=== PATIENT | male | born 1945 | race Caucasian/White ===

== ENCOUNTER 2019-03-20 18:51 | Inpatient (IN) | payer OTHER ==
[~2019-03-20] VITALS: Ht 175.3 cm; Wt 118.0 kg
[~2019-03-20 18:51] MED LIST: ACTOPLUS MET X1 EAC1 OR; ACTOS15 MG PO; ADULT LOW DOSE81 MG; ADULT LOW DOSE81 MG PO; ADVAIR 250-501 EACH; ADVAIR 250-501 EACH IH; APAP500 PO; ASPIRIN325 PO; BENADRYL25 MG PO; BENAZEPRIL HCL20 MG PO; BENICAR20 MG OR; BISACODYL SUPP10 MG RE; CALCIUM CARBO1250 MG PO; CALCIUM CARBONATE; CATAPRES-TTS 20.2 MG TD; COUMADIN7.5 MG PO; COZAAR 50 MG TA50 M2 PO; DUONEB 2.5-0.5 M3 ML; GLUCOPHAGE500 MG PO; HYDRALAZINE 2525 M1 PO; LEVOTHROID; LEVOTHROID PO; LOVENOX SC; MAALOX525 MG/15 PO; MULTIVITAMINS PO; NEPHROCAPS SOFT1 CAP PO; NOVOLIN N100 UNIT/1 SQ; NOVOLIN R100 UNIT/1 IJ; ONDANSETRON ODT4 MG PO; PACERONE 200 M200 M1 PO; PEPCID20 MG PO; PRAVASTATIN SOD20 MG OR; PRAVASTATIN SOD20 MG PO; PROCRIT 1010000 U/M1 SC; PROTONIX40 M2 PO; RENAGEL PO; SPIRIVA; SPIRIVA INH; TOPROL XL50 MG PO; VENTOLIN17 GM INH; ZOLOFT PO; ZOLOFT100 MG OR; ZOLOFT50 MG PO
[2019-03-20 18:52] VITALS: BP 168/71
[2019-03-20 19:31] LABS: ABSOLUTE NEUTROPHILS 11.2 thou/uL (1.4-8.2); BASOPHILS 0.7 % (0.0-2.0); HEMATOCRIT 33.6 % (42.0-52.0); HEMOGLOBIN 11.2 gm/dL (14.0-18.0); LYMPHOCYTES 12.7 % (24.0-44.0); MCH 27.8 pg (26.0-34.0); MCHC 33.4 g/dL (28.0-37.0); PLATELET COUNT 445 thou/uL (150-400); POLYS 79.6 % (36.0-66.0); RBC 4.04 mil/uL (4.50-6.00)
[2019-03-20 19:34] LABS: BE(vivo) -1.3 mmol/L (-2 to +3); HCO3 22.8 mmol/L (22.0-26.0); PCO2 36.4 mmHg (35.0-45.0); PO2 64.3 mmHg (80.0-100.0); pH 7.415 (7.360-7.450)
[2019-03-20 19:38] LABS: ANION GAP 14 mmol/L (7-16); BUN 16 mg/dL (7-18); CALCIUM 8.8 mg/dL (8.5-10.1); CHLORIDE 100 mmol/L (98-107); CO2 22 mmol/L (21-32); GLUCOSE 200 mg/dL (74-106); POTASSIUM 3.2 mmol/L (3.5-5.1); SODIUM 136 mmol/L (136-145)
[2019-03-20 19:47] LABS: TROPONIN-I <0.06 ng/mL (<0.06)
[2019-03-20] MEDS ORDERED: METFORMIN HCL500 MG PO (22:28)
[2019-03-20] MEDS ORDERED: GABAPENTIN 100100 MG PO (22:28)
[2019-03-20] MEDS ORDERED: NOVOLIN 70100 UNIT/5 SUBQ (22:32)
[2019-03-21 04:32] LABS: HEMATOCRIT 33.1 % (42.0-52.0); MCH 27.5 pg (26.0-34.0); MCHC 33.1 g/dL (28.0-37.0); RBC 3.99 mil/uL (4.50-6.00); RDW 13.4 % (10.5-14.5); WBC 13.8 thou/uL (4.0-11.0)
[2019-03-21 04:35] LABS: CALCIUM 8.6 mg/dL (8.5-10.1); CREATININE 0.9 mg/dL (0.7-1.3); MAGNESIUM 1.3 mg/dL (1.8-2.4); POTASSIUM 3.5 mmol/L (3.5-5.1)
--- NOTE | 2019-03-21 07:40 | EKG ---
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 : 1945 Requested By: Danny Medina Order Number: [id number] MD: Arron Durham Measurements Intervals [place] Rate: 97 P: 60 RI: 160 QRS: 58 QRSD: 163 T: -16 QT: 400 QTc: 508 Interpretive Statements Sinus tachycardia Atrial premature complex Right bundle branch block Compared to ECG 07/19/2016 06:52:16 Right bundle-branch block now present Electronically Signed On 03-21-2019 7:40:43 CDT by Arron Durham [email or web address] ��������������������������������������������� <ELECTRONICALLY SIGNED> ���������������������������������������� By: Arron Durham MD, [facility] ��������������������������������������������� 03/21/19 0740 1920 19 Arron Durham MD, [facility] /EPI
[2019-03-21 14:28] VITALS: BP 130/56
[2019-03-21 16:25] VITALS: BP 130/56
[2019-03-21 16:52] VITALS: BP 122/69
[2019-03-21 17:48] VITALS: BP 152/87
--- NOTE | 2019-03-21 18:30 | NUR ---
PT ARRIVED TO UNIT FROM ED AT APPROX 1800. PT IS ACCOMPANIED BY . VSS, EVEN NON LABORED BREATHING. 02 SAT MAINTAIN >90 ON OPTIFLOW 02 SETTINGS. COMPLETED ADMISSION HISTORY, EDUCATION, AND ABUSE ASSESS. ALL CONSENTS SIGNED. FALL RISK IN PLACE. TELE INTERFERENCE EXPLAINED. MED RECONCILIATION COMPLETED. PT AND HAVE BEEN UPDATED AND PRIENTED TO ROOM. NO NEW COMPLAINTS AT THIS TIME.
[2019-03-21 20:02] VITALS: BP 112/54
[2019-03-22] VITALS (128 sets, daily range): BP systolic 79–190; BP diastolic 34–136
[2019-03-22 05:21] LABS: HEMATOCRIT 34.2 % (42.0-52.0); HEMOGLOBIN 11.4 gm/dL (14.0-18.0); MCH 27.8 pg (26.0-34.0); MCHC 33.3 g/dL (28.0-37.0); MCV 83.5 fL (80.0-100.0); PLATELET COUNT 454 thou/uL (150-400); RBC 4.09 mil/uL (4.50-6.00); RDW 13.2 % (10.5-14.5); WBC 23.5 thou/uL (4.0-11.0)
[2019-03-22 05:33] LABS: CALCIUM 8.6 mg/dL (8.5-10.1); CREATININE 0.9 mg/dL (0.7-1.3); MAGNESIUM 2.1 mg/dL (1.8-2.4)
[2019-03-22 07:42] LABS: ABSOLUTE NEUTROPHILS 21.2 thou/uL (1.4-8.2)
[2019-03-22 07:46] LABS: ANISOCYTOSIS SLIGHT
--- NOTE | 2019-03-22 08:08 | NUR ---
PATIENT IS SLOWLY PROGRESSING IN CARE PLAN. VITAL SIGNS MOSTLY SABLE WITH PATIENT HAVING NO COMPLAINTS OF PAIN OR NAUSEA. PATIENT REMAINED ON OPTIFLO NASAL CANNULA WITH OXYGEN SATURATION STAYING IN LOW 90'S TO HIGH 80'S. PATIENT DE SATS WITH MINIMAL EXERTION. UP TO BEDSIDE COMMODE WITH ASSISTANCE MULTIPLE TIMES INCIDENT FREE. CONTRINUE PLAN OF CARE.
--- NOTE | 2019-03-22 10:21 | 2DMMODE ---
[facility] [address] [place] [address] 2 D/M-MODE ECHOCARDIOGRAM Name: KAILASH ARREOLA JOSE Room #: 359-P ADM IN ..#: [id number] ������������� Admission: 03/20/19 ������������� Attend Phys: Jony Burgos, Discharge: ��� ������������� ��� Date of : 49 Date of Service: 03/22/19 1021 �� Report #: [id number] �������� ��������������������������������������������[id number] THIS REPORT FOR: //name// APPROVED REPORT Study performed: 03/22/2019 08:23:29 EXAM: Comprehensive 2D, Doppler, and color-flow Echocardiogram Patient Location: In-Patient Room #: 359 Status: routine BSA: 2.26 HR: 101 bpm BP: 120/66 mmHg Rhythm: NSR Other Information Study Quality: Adequate Indications COPD Diabetes Chest Pain Hypertension/HDD 2D Dimensions RVDd: 38.33 mm IVSd: 10.06 (7-11mm) LVOT Diam: 21.84 (18-24mm) LVDd: 51.94 mm PWd: 11.57 (7-11mm) Ascending Ao: 33.13 (22-36mm) LVDs: 37.99 (25-40mm) Aortic Root: 31.62 mm IVC: 19.00 mm Volumes Left Atrial Volume (Systole) Single Plane 4CH: 58.09 mL Single Plane 2CH: 58.87 mL LA ESV Index: 29.00 mL/m2 Aortic Valve AoV Peak Aldo.: 1.34 m/s AO Peak Gr.: 7.13 mmHg LVOT Max P.45 mmHg LVOT Max V: 1.05 m/s ISAC Vmax: 2.96 cm2 Mitral Valve [facility] [address] [place] [address] 2 D/M-MODE ECHOCARDIOGRAM Name: KAILASH ARREOLA Room #: 359-P [facility] [id number] ������������� Admission: 03/20/19 ������������� Attend Phys: Jony Burgos, Discharge: ��� ������������� ��� Date of : 49 Date of Service: 03/22/19 1021 �� Report #: [id number] �������� ��������������������������������������������[id number] E/A Ratio: 0.0 MV E Max Aldo.: 0.80 m/s MV A Aldo.: 0.00 m/s IVRT: 69.20 ms Pulmonary Valve PV Peak Aldo.: 1.21 m/s PV Peak Gr.: 5.83 mmHg Pulmonary Vein P Vein S: 0.45 m/s P Vein A: 0.36 m/s P Vein D: 0.39 m/s P Vein A Dur.: 93.4 msec P Vein S/D Ratio: 1.15 Left Ventricle The left ventricle is normal size. There is normal left ventricular wall thickness. The left ventricular systolic function is normal. The left ventricular ejection fraction is within the normal range. LVEF is 55-60%. Transmitral Doppler flow pattern suggests impaired LV relaxation. Right Ventricle The right ventricle is normal size. The right ventricular systolic function is normal. Atria The left atrium size is normal. The right atrium size is normal. Aortic Valve The aortic valve is normal in structure. No aortic regurgitation is present. There is no aortic valvular stenosis. Mitral Valve The mitral valve is normal in structure. Trace mitral regurgitation. No evidence of mitral valve stenosis. Tricuspid Valve The tricuspid valve is normal in structure. There is no tricuspid valve regurgitation noted. Pulmonic Valve The pulmonary valve is normal in structure. Trace pulmonic regurgitation. Great Vessels The aortic root is normal in size. IVC is normal in size and [facility] [address] [place] [address] 2 D/M-MODE ECHOCARDIOGRAM Name: KAILASH ARREOLA [facility] Room #: 359-P [facility] IN .R.#: [id number] ������������� Admission: 03/20/19 ������������� Attend Phys: Jony Burgos, Discharge: ��� ������������� ��� Date of : 49 Date of Service: 03/22/19 1021 �� Report #: [id number] �������� ��������������������������������������������[id number] collapses >50% with inspiration. Pericardium Trace pericardial effusion. <Conclusion> The left ventricle is normal size. LVEF is 55-60%. The aortic valve is normal in structure. The mitral valve is normal in structure. Trace mitral regurgitation. The tricuspid valve is normal in structure. The pulmonary valve is normal in structure. Trace pulmonic regurgitation. Trace pericardial effusion. ��������������������������������������������� <ELECTRONICALLY SIGNED> ���������������������������������������� By: Rishi Coy MD ��������������������������������������������� 03/22/19 1021 1021 1021 Rishi Coy MD /INF
[2019-03-22 10:49] LABS: BE(vivo) -0.6 mmol/L (-2 to +3); HCO3 23.7 mmol/L (22.0-26.0); PO2 57.6 mmHg (80.0-100.0); pH 7.413 (7.360-7.450); sO2 90.4 % (92.0-98.0)
[2019-03-22 12:55] LABS: BE(vivo) -4.8 mmol/L (-2 to +3); HCO3 21.5 mmol/L (22.0-26.0); PCO2 44.5 mmHg (35.0-45.0); PO2 97.4 mmHg (80.0-100.0); sO2 96.8 % (92.0-98.0)
[2019-03-22 12:56] LABS: pH 7.302 (7.360-7.450)
--- NOTE | 2019-03-22 13:30 | NUR ---
Case opened to follow for dc planning. Unable to visit with pt as he has just been transfered to ICU and intubated due to worsening repiratory status. Pt's Yana is at bedside. They live in their family home in [place]. He has no prior dme at home. Will reattempt to visit with the pt/or his spouse as his condition stabilizes. Available for support as needed.
[2019-03-22 15:30] LABS: BE(vivo) -1.6 mmol/L (-2 to +3); HCO3 23.1 mmol/L (22.0-26.0); PCO2 38.7 mmHg (35.0-45.0); PO2 123.7 mmHg (80.0-100.0); pH 7.393 (7.360-7.450); sO2 98.4 % (92.0-98.0)
--- NOTE | 2019-03-22 19:03 | NUR ---
1220 PT ARRIVED ON UNIT FROM 3W, ORDERS TO INTUBATED, RECIEVED ORDERS, MEDICATIONS PULLED AND DOCUMENTED, SEE CHARTING. 1225 PT INTUBATED, TOLERATED WELL, ORDERS RECIEVED FOR SEDATION, UPDATED ON STATUS AND PLAN OF CARE. SHE AGREES. WILL MONITOR CLOSELY. VITAL SIGNS STABLE AT THIS TIME.
[2019-03-23] VITALS (94 sets, daily range): BP systolic 75–141; BP diastolic 32–68
[2019-03-23 03:23] LABS: CALCIUM 7.3 mg/dL (8.5-10.1); CREATININE 1.2 mg/dL (0.7-1.3); POTASSIUM 3.9 mmol/L (3.5-5.1)
[2019-03-23 03:48] LABS: HEMATOCRIT 29.8 % (42.0-52.0); HEMOGLOBIN 9.7 gm/dL (14.0-18.0); MCH 27.3 pg (26.0-34.0); MCHC 32.7 g/dL (28.0-37.0); MCV 83.4 fL (80.0-100.0); RBC 3.57 mil/uL (4.50-6.00); RDW 13.2 % (10.5-14.5); WBC 16.2 thou/uL (4.0-11.0)
[2019-03-23 05:17] LABS: BE(vivo) -5.2 mmol/L (-2 to +3); HCO3 21.4 mmol/L (22.0-26.0); PCO2 45.7 mmHg (35.0-45.0); PO2 130.4 mmHg (80.0-100.0); pH 7.288 (7.360-7.450); sO2 98.3 % (92.0-98.0)
--- NOTE | 2019-03-23 06:47 | NUR ---
ASSUMED CARE OF PT AT 1900. PT SEDATED ON PROPOFOL AND VERSED. PT WAKES UP VERY RESTLESS WHEN SEDATION LIGHTENED. HE IS ASYNCHRONOUS WITH THE VENT AND ATTEMPTS TO REACH FOR ETT ON SEDATION VACATION. SEDATION LIGHTENED DUE TO LOW BP AT 1900. AT APPROXIMATELY 0200 PT BEGAN BECOMING HYPOTENSIVE DESPITE SEDATION LIGHTENED. Danis ARAIZA CALLED AND ORDERS FOR 25O CC BOLUS GIVEN WITH SLIGHT IMPROVEMETN IN BP. DR MCCARTHY CALLED AT 0412 REGARDING LOW BP DESPITE FLUID. ORDERS FOR INCREASE RATE IN IVF, 1L NS BOLUS, AND LEVOPHED GIVEN. PT STARTED ON LOW DOSE LEVOPHED WITH IMPROVEMENT IN BP.
--- NOTE | 2019-03-23 08:52 | HC ---
[facility] [place] [address] CONSULTATION Name: KAILASH ARREOLA Room #: 244-P ADM IN M.R.#: [id number] Admission: 03/20/19 ������������������ Attend Phys: Jony Burgos DO Discharge: ������������������ Date of : 49 Report #: [id number] THIS REPORT FOR: //name// CC: Jony Burgos Physician staff [facility] DATE OF SERVICE: 03/21/2019 REASON FOR CONSULTATION: Pneumonia. HISTORY OF PRESENT ILLNESS: A 73-year-old white man who is admitted through the Emergency Room with increasing shortness of breath and found to have a rather abnormal CT scan of the chest with bilateral pulmonary infiltrates. The patient relates some dry cough, unable to expectorate. No significant fevers. PAST MEDICAL HISTORY: 1. Atrial fibrillation. 2. Hypertension. 3. Hyperthyroidism. 4. Diabetes mellitus. 5. Dyslipidemia. 6. Status post appendectomy in 1963. 7. Gastroesophageal reflux. 8. Kidney stones in 1974. 9. Obstructive sleep apnea. DRUG ALLERGIES: None listed. MEDICATIONS: The patient is currently on treatment with enoxaparin, sertraline, losartan, aspirin, atorvastatin, levothyroxine, chlorhexidine gluconate, guaifenesin, gabapentin, famotidine, methylprednisolone, midazolam p.r.n., Atrovent and albuterol inhalation treatments, p.r.n. glucose glucagon, azithromycin 500 mg IV daily, Rocephin 1 gram IV daily. SOCIAL HISTORY: See H and P, old records. FAMILY HISTORY: See H and P, old records. REVIEW OF SYSTEMS: See H and P and as above. PHYSICAL EXAMINATION: GENERAL: Chronically ill-appearing white man, overweight, . VITAL SIGNS: Temperature 98, pulse 91, respirations 23, BP 130/56, height 5 feet 9 inches, weight 246 pounds. HEENMT: Missing teeth. No thrush or hairy leukoplakia. [facility] [address] [place] [address] CONSULTATION Name: KAILASH ARREOLA [facility] Room #: [facility].#: [id number] Admission: 03/20/19 ������������������ Attend Phys: Jony Burgos DO Discharge: ������������������ Date of : 49 Report #: [id number] NECK: Supple, no thyromegaly. LUNGS: Crackles, rhonchi in both lung ramos. HEART: S1, S2. No gallop or murmur. ABDOMEN: Obese, soft. No masses or megaly. GENITALIA AND RECTAL: Deferred. EXTREMITIES: No clubbing or cyanosis. NEUROLOGIC: Grossly within normal limits. LABORATORY DATA: Sodium 138, potassium 3.5, BUN 12, creatinine 0.9, glucose 237, magnesium 1.3. C-reactive protein 224.5 mg/dL. D-dimer 2.16. WBC on 03/20/2019 is 14,000, yesterday was 13,800 and today, it jumped up to 23,500; hemoglobin 11.4 g/dL; platelets 454,000. White blood cell count differential revealed 90% segmented neutrophils. ESR 112 mm per hour. Procalcitonin 0.16, normal. ABGs reveal pH 7.30, pCO2 44, pO2 97, bicarbonate 21.52. Lactate 2.17. This is on FiO2 of 100%. MICROBIOLOGY DATA: Pending at the time of this dictation. RADIOLOGY EVALUATION: A CT scan of the chest PE protocol revealed no pulmonary embolism, extensive bilateral diffuse pulmonary infiltrate compatible with pneumonia. Renal calculi, lobulated liver with possible chronic liver disease. ASSESSMENT: 1. Acute respiratory failure requiring orotracheal intubation and mechanical ventilation. 2. Possible chronic obstructive pulmonary disease with obstructive sleep apnea. 3. Extensive bilateral pulmonary infiltrate/pneumonia. 4. Kidney stones. 5. Dyslipidemia. 6. Possible liver cirrhosis. SUGGESTIONS: Recommend broadening antibiotic coverage. Discontinue Rocephin and start meropenem 1 gram IV every 8 hours and today, I am adding Zyvox. The patient is being transferred to the ICU. Dr. Tolentino, thank you for requesting my suggestions in the care of your patient. ��������������������������������������������� <ELECTRONICALLY SIGNED> ���������������������������������������� By: Hebert Moreno MD ��������������������������������������������� 03/23/19 0852 1429 2237 Hebert Moreno MD /nt
--- NOTE | 2019-03-23 11:12 | NUR ---
THE PATIENT WAS TRANSFERRED TO ICU DUE TO DECLINING RESPIRATORY STATUS AND NOW ON A VENTILATOR UNDER SEDATION. WILL AWAIT NEW ORDERS WHEN PATIENT IS READY FOR ORAL INTAKE.
--- NOTE | 2019-03-23 11:45 | NUR ---
Dr Tolentino performed bedside bronkoscopy with assistace of RT. Pt already on sedation prior to start of the procedure (Versed gtt and Proofol). Specimens were sent to the lab. See procedure record on the chart.
--- NOTE | 2019-03-23 15:00 | NUR ---
Pt fingerstick glucose at 1305 was 500. Test was repeated and serum glucose was also obtained. Dr Pryor was notified and orders were received for insulin gtt per protocol. Subcutaneous insulin was dc'd.
--- NOTE | 2019-03-23 18:15 | NUR ---
Pt was taken to radiology for CT scan of chest per orders from Dr Tolentino. Pt remains sedated. Pt was given Morphine 4 mg IV at 1741 for increased use of accessory muscles with breathing. Sedation vacation not given this shift due to pulmonary status. and dtr were here for visit today.
--- NOTE | 2019-03-23 18:28 | NUR ---
VASCULAR ACCESS NURSE ROUNDING. THE CENTRAL LINE CONTINUES TO BE APPROPRIATE FOR THIS PATIENT. HE CONTINUES ON SEVERAL IV MEDS IN THE ICU
[2019-03-23 18:53] LABS: CALCIUM 7.8 mg/dL (8.5-10.1); CREATININE 1.1 mg/dL (0.7-1.3); POTASSIUM 3.4 mmol/L (3.5-5.1)
--- NOTE | 2019-03-23 19:30 | NUR ---
Report was given to RN assuming care. (Wilfrid).
--- NOTE | 2019-03-23 19:44 | HC ---
[facility] [place] [address] CONSULTATION Name: KAILASH ARREOLA JR Room #: 244-P ADM IN M.R.#: [id number] Admission: 03/20/19 ������������������ Attend Phys: Jony Burgos DO Discharge: ������������������ Date of : 49 Report #: [id number] THIS REPORT FOR: //name// CC: Jony Burgos Physician staff [facility] DATE OF SERVICE: 03/21/2019 PULMONARY CONSULTATION REFERRING PHYSICIAN: Dr. Burgos. REASON FOR REFERRAL: Pneumonia. HISTORY OF PRESENT ILLNESS: The patient is a 73-year-old white male who presents to the ED with progressive dyspnea. A pulmonary consultation was requested. The patient is not able to give a good history due to dyspnea. He was said to be in normal state of health until about 3 days ago when he started to develop shortness of breath. His saturation on arrival to the ED was about 86%. His chest x-ray and chest CT shows extensive bilateral patchy alveolar infiltrates. Otherwise, denies any recent fever, sore throat, night sweats or chills. Denies any recent nausea, vomiting or diarrhea. Denies any recent exposure to toxins or recent travel. PAST MEDICAL HISTORY: Notable for hypertension, gastroesophageal reflux disease, hiatal hernia, diabetes mellitus type 2, hypercholesterolemia, nephrolithiasis, sleep apnea, new onset atrial fibrillation. PAST SURGICAL HISTORY: Unremarkable. ALLERGIES: None to medications. HOME MEDICATIONS: Include levothyroxine 50 mcg p.o. once a day, pravastatin 20 mg once a day, aspirin once a day, Ventolin MDI 2 puffs p.r.n., Cozaar 50 mg p.o. q. day, Zoloft 200 mg once a day, metformin 1000 mg p.o. b.i.d., gabapentin 500 mg p.o. b.i.d., insulin supplements. FAMILY HISTORY: Noncontributory. SOCIAL HISTORY: He has smoked about 1-2 packs a day for about 40 years, quit about 10 years ago. He denies any alcohol use. He is . [facility] [address] [place] [address] CONSULTATION Name: KAILASH ARREOLA [facility] Room #: 244-P [facility] IN ..#: [id number] Admission: 03/20/19 ������������������ Attend Phys: Jony Burgos DO Discharge: ������������������ Date of : 49 Report #: [id number] REVIEW OF SYSTEMS: As mentioned above, otherwise 10-point system review negative. PHYSICAL EXAMINATION: GENERAL: He is awake, alert, in moderate distress due to dyspnea. VITAL SIGNS: Temperature is 98.8 degrees Fahrenheit, pulse is 100, respiratory rate is 20, blood pressure 137/66 mmHg, saturation 95%. HEENT: Normocephalic, atraumatic. NECK: Supple without any lymphadenopathy or thyromegaly. CHEST: Breath sounds are good with bilateral crackles. No wheezes. CARDIOVASCULAR: Normal S1, S2. There are no murmurs or gallop. There is no JVD. There is no carotid bruit. Pulses are 2+/4+ bilaterally. ABDOMEN: Obese, soft, nontender, no organomegaly or masses felt. GENITOURINARY: Deferred. RECTAL: Deferred. EXTREMITIES: There is no edema, cyanosis or clubbing. LABORATORY DATA: CT chest angiogram shows diffuse patchy bilateral airspace infiltrates predominantly in both upper lobes along with left lower lobe. Chest x-ray shows diffuse infiltrates, greater in the left than the right. Echocardiogram was unremarkable. BNP is normal. D-dimer was 2.16. TSH is 2.0. Procalcitonin level was normal. EKG shows right bundle-branch block, sinus tachycardia. CT chest angiogram as mentioned above, also did not show any evidence of pulmonary embolus. Sed rate is elevated. Electrolytes are normal. WBC is 13,900 without evidence of bandemia. Lymphopenia is present. Arterial blood gas revealed pH 7.41, pCO2 of 36, pO2 of 64 on 4 liters of O2. IMPRESSION: 1. Diffuse bilateral airspace infiltrates in this 73-year-old white male. No recent febrile illness. He has smoked most of his life until about 10 years ago. No exposure history. Chest CT, chest x-rays suggest acute lung injury pattern; however, cannot rule out severe community-acquired pneumonia. 2. Acute hypoxic respiratory failure. 3. Remote history of tobacco use. 4. Hypertension. 5. Diabetes mellitus, type 2. 6. Obstructive sleep apnea, not on CPAP at home. 7. History of chronic obstructive pulmonary disease. 8. Hypothyroidism. RECOMMENDATION: Broad broad-spectrum antibiotic is recommended given extent of infiltrates, would also recommend infectious disease consultation. Given the severity of pneumonia, I would also recommend the patient to be admitted to the ICU for closer monitoring for possible impending need for intubation. Deep venous thrombosis and gastrointestinal prophylaxis recommended. Cultures will be obtained. Agree with bronchodilators and corticosteroids. [facility] [address] [place] [address] CONSULTATION Name: KAILASH ARREOLA Room #: 244-P [facility] IN M.R.#: [id number] Admission: 03/20/19 ������������������ Attend Phys: Jony Burgos DO Discharge: ������������������ Date of : 49 Report #: [id number] Thank you for this consultation. Critical care 1 hour. ��������������������������������������������� <ELECTRONICALLY SIGNED> ���������������������������������������� By: Armando Tolentino MD ��������������������������������������������� 03/23/19 1944 1125 2155 Armando Tolentino MD /nt
[2019-03-23 20:06] LABS: BE(vivo) -4.3 mmol/L (-2 to +3); HCO3 21.9 mmol/L (22.0-26.0); PCO2 44.9 mmHg (35.0-45.0); PO2 77.3 mmHg (80.0-100.0); sO2 94.2 % (92.0-98.0)
[2019-03-23 20:10] LABS: pH 7.307 (7.360-7.450)
--- NOTE | 2019-03-23 22:57 | NUR ---
AT 2218 PT WENT INTO EXTREME TACHYCARDIA 150-170S. SEE PT FREQUENT VS. CALL PLACED TO EVELIN BARAJAS REGARDING PT CHANGE. DISCUSSED ALL THE MANY IV MEDS PT IS GETTING. SHE SAID SHE WILL BE ON UNIT AROUND 2300 TO CHECK ON PT AND ASSESS. ABLE TO START AN ADDITIONAL ACCESS VIA PIV TO CONTINUE WITH SCHEDULED IV ABX. OBTAINED EKG SHOWING THE EXTREME TACHYCARDIA WITH WIDE COMPLEX RATE 165. CLEANING STAFF SUPERVISOR AND I DISCUSSED GIVING IV LOPRESSOR BUT HOLDING OFF FOR NOW.
[2019-03-24] VITALS (60 sets, daily range): BP systolic 79–132; BP diastolic 35–61
[2019-03-24 00:50] LABS: CALCIUM 7.4 mg/dL (8.5-10.1); CREATININE 1.1 mg/dL (0.7-1.3); POTASSIUM 3.3 mmol/L (3.5-5.1)
--- NOTE | 2019-03-24 03:47 | NUR ---
0345 PT HR SLOWED TO 80S AND CONVERTED BACK TO SR W/BBB. WILL TITRATE THE CARDIZEM DOWN AND DETERMINE USE OF NEW AMIO GTT AND BOLUS ORDER.
[2019-03-24 05:16] LABS: BE(vivo) -5.5 mmol/L (-2 to +3); HCO3 21.8 mmol/L (22.0-26.0); PCO2 49.7 mmHg (35.0-45.0); sO2 78.4 % (92.0-98.0)
[2019-03-24 05:17] LABS: PO2 48.9 mmHg (80.0-100.0)
[2019-03-24 05:34] LABS: BE(vivo) -4.7 mmol/L (-2 to +3); HCO3 21.4 mmol/L (22.0-26.0); PCO2 43.5 mmHg (35.0-45.0); sO2 98.9 % (92.0-98.0)
[2019-03-24 05:43] LABS: HEMATOCRIT 34.3 % (42.0-52.0); HEMOGLOBIN 11.2 gm/dL (14.0-18.0); MCHC 32.5 g/dL (28.0-37.0); RBC 4.13 mil/uL (4.50-6.00)
[2019-03-24 05:47] LABS: WBC 34.3 thou/uL (4.0-11.0)
[2019-03-24 05:59] LABS: CALCIUM 7.9 mg/dL (8.5-10.1); CREATININE 0.9 mg/dL (0.7-1.3); POTASSIUM 3.6 mmol/L (3.5-5.1)
--- NOTE | 2019-03-24 06:32 | NUR ---
PT ON VENT 100% FIO2. PT NOW SR W/BBB 70s. PT CONTINUES WITH LEVO, PROPOFOL, VERSED, INSULIN AND MAINTENANCE IVFs. PT RR WNL NOW. PT OUTPUT HAS BEEN GOOD GREATER THAN 1300ML VIA ALAS. SEE PREVIOUS NOTES FOR ONGOING SHIFT EVENTS.
--- NOTE | 2019-03-24 08:41 | EKG ---
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 : 1945 Requested By: Marcela Mann Order Number: [id number] MD: Arron Durham Measurements Intervals [place] Rate: 165 P: NE: QRS: 158 QRSD: 150 T: -48 QT: 316 QTc: 524 Interpretive Statements Supraventricular tachycardia Right bundle branch block Compared to ECG 03/20/2019 19:20:53 Sinus tachycardia no longer present Atrial premature complex(es) no longer present Electronically Signed On 03-24-2019 8:40:55 CDT by Arron Durham [email or web address] ��������������������������������������������� <ELECTRONICALLY SIGNED> ���������������������������������������� By: Arron Durham MD, [facility] ��������������������������������������������� 03/24/19 0840 29 29 Arron Durham MD, [facility] /EPI
--- NOTE | 2019-03-24 08:42 | EKG ---
[address] [address] ELECTROCARDIOGRAM REPORT Name: ELBAKAILASH ELMO Room #: 244-P ADM IN M.R.#: [id number] ������������������ Admission: 03/20/19 ������������������ Attend Phys: Jony Burgos DO Discharge: ������������������ Date of : 49 Report #: [id number] ����������������������������������������������������������������� [id number] THIS REPORT FOR: //name// 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: ZEB : 1945 Requested By: Marcela Mann Order Number: [id number] MD: Arron Durham Measurements Intervals [place] Rate: 157 P: 9 IN: 142 QRS: 153 QRSD: 152 T: -28 QT: 332 QTc: 537 Interpretive Statements Supraventricular tachycardia Rightward axis Right bundle branch block Compared to ECG 03/20/2019 19:20:53 No significant change was found Electronically Signed On 03-24-2019 8:42:14 CDT by Arron Durham [email or web address] ��������������������������������������������� <ELECTRONICALLY SIGNED> ���������������������������������������� By: Arron Durham MD, [facility] ��������������������������������������������� 03/24/19 0842 2321 232 Arron Durham MD, [facility] /EPI
--- NOTE | 2019-03-24 12:06 | NUR ---
REFERRRAL TO ASSIST WITH TEANSFER TO [facility] OR [facility] PER DR. MCCARTHY FOR HIGHER LEVEL OF CARE, POSSIBLE ECMO. PT WITH RESP FAILURE AND ON VENT WITH JULIO CESAR FIO2 AND PEEP. PT MANAGER ARCHITECTURE ELLY, SPOUSE PREFERS [facility]. INSURANCE CARDS AND FACESHEET FAXED TO [facility] CASE MANAGEMENT ALONG WITH DR. MCCARTHY'S CONTACT #. RADIOLOGY NOTIFIED TO UPLOAD INMAGING TO [facility] FOR DIAN CARMONA. CHART COPY REQUESTED. WILL WAIT FOR CALL WITH DECISION ON ACCEPTANCE.
--- NOTE | 2019-03-24 13:47 | NUR ---
PT REMAINS INTUBATED AND SEDATED TODAY. REMAINS IN NSR/BBB. WEANING O2 ABLE. DR MCCARTHY REQUESTS PT TRANSFER TO [facility] OR FOR POSSIBLE ECMO. PT'S AT BESIDE AND DISCUSSED WITH DR MCCARTHY AND PREFERS [facility]. CASE MANAGEMENT ASSISTING WITH TRANSFER ARRAGEMENTS. REPORT CALLED TO AYLIN OSWALD [facility]. TO REMAIN ON INSULIN, LEVOPHED, AND PROPOFOL GTT DURING TRANSFER. AWAITING AMBULANCE FOR TRANSFER.
--- NOTE | 2019-03-24 14:48 | NUR ---
AMBULANCE HERE FOR TRANSFER AT [address] [facility]. PTS INFORMED OF TRANSFER.
[2019-03-26 08:10] LABS: HIV ANTIBODY Non Reactive (Non Reactive)
--- NOTE | 2019-03-27 16:05 | PATH ---
[facility] [address] [place] [address] PATHOLOGY RPT PROCEDURE Name: KAILASH ARREOLA Room #: 244-P DIS IN M.R.#: [id number] ������������������ Admission: 03/20/19 ������������������ Date of : 49 Discharge: 03/24/19 Report #: [id number] Path Case #: [id number] Note [facility] Accession Number: [id number] TESTS RESULT FLAG UNITS REF RANGE LAB Clinician Provided Cytology Information No. of containers..01 Other (Miscellaneous) Source: ANGELA BAL DIAGNOSIS: 02 ANGELA BAL NEGATIVE FOR MALIGNANT CELLS. REACTIVE BRONCHIAL CELLS ARE PRESENT. PULMONARY MACROPHAGES PRESENT, INDICATIVE OF LOWER RESPIRATORY TRACT SAMPLING. Pathologist ICD10: 02 J96.01 Signed out by: 02 Maria Diaz MD, Pathologist NPI- [id number] Performed by: Anushka Bartholomew, Putty Glazer ([facility]) Gross description: 01 5ML, COLORLESS, CLOUDY /LCS FLAG LEGEND: L-Low Normal,H-High Normal,LL-Alert Low,HH-Alert High <-Panic Low,>-Panic High,A-Abnormal,AA-Critical Abnormal Performed at: [address] [place] [address] Jacky Shane MD, [address] [address] Maria Diaz MD, Specimen Comment: A courtesy copy of this report has been sent to Specimen Comment: [phone], , . Specimen Comment: Report sent to ,DR BETTS / DR SUN Performed at: [address], [place], [place] [id number] MD Jacky Shane MD Phone: [phone]
== END 2019-03-24 14:20 | disposition short-term general hospital (02) | DRG 871 ==
LOC: ER 18:51 → 3W 22:03 → ICU 22:03 → EROBS 22:03 → 3W 03-21 17:39 → ICU 03-22 12:14
PROVIDERS: Emergency Medicine; Internal Medicine; Internal Medicine Infectious Disease; Internal Medicine Pulmonary Disease; Nurse Practitioner Acute Care; Nurse Practitioner Family; ADMIT Internal Medicine Geriatric Medicine
PROC: 0BH17EZ Insertion of Endotracheal Airway into Trachea, Via Natural or Artificial Opening (ICD-10-PCS; principal; 2019-03-22)
PROC: 5A1945Z Respiratory Ventilation, 24-96 Consecutive Hours (ICD-10-PCS; principal; 2019-03-22)
PROC: 0CJS8ZZ Inspection of Larynx, Via Natural or Artificial Opening Endoscopic (ICD-10-PCS; principal; 2019-03-22)
PROC: 0B9G8ZX Drainage of Left Upper Lung Lobe, Via Natural or Artificial Opening Endoscopic, Diagnostic (ICD-10-PCS; 2019-03-23)
DX: A41.9 Sepsis, unspecified organism (principal); J96.21 Acute and chronic respiratory failure with hypoxia; J18.9 Pneumonia, unspecified organism; E87.2 Acidosis; J84.9 Interstitial pulmonary disease, unspecified; J44.0 Chronic obstructive pulmonary disease with (acute) lower respiratory infection; R65.20 Severe sepsis without septic shock; I10 Essential (primary) hypertension; K21.9 Gastro-esophageal reflux disease without esophagitis; E11.9 Type 2 diabetes mellitus without complications; E78.00 Pure hypercholesterolemia, unspecified; G47.33 Obstructive sleep apnea (adult) (pediatric); E03.9 Hypothyroidism, unspecified; E87.6 Hypokalemia; D64.9 Anemia, unspecified; E66.9 Obesity, unspecified; E83.42 Hypomagnesemia; L30.9 Dermatitis, unspecified; I48.0 Paroxysmal atrial fibrillation; Z90.49 Acquired absence of other specified parts of digestive tract; Z87.442 Personal history of urinary calculi; Z87.891 Personal history of nicotine dependence; Z68.38 Body mass index [BMI] 38.0-38.9, adult
CPT/HCPCS: 10078; 10879; 27000